=== PATIENT | female | born 1985 | race Caucasian/White ===

== ENCOUNTER 2019-11-12 12:47 | Emergency (ER) | payer SELFPAY | END 2019-11-12 13:10 | disposition home or self-care (01) | LOC: BURERS 12:47 | DX: H93.13 Tinnitus, bilateral (principal); R11.0 Nausea; F17.210 Nicotine dependence, cigarettes, uncomplicated; Z71.6 Tobacco abuse counseling | CPT/HCPCS: 99406 ==

== ENCOUNTER 2020-01-13 17:46 | Emergency (ER) | payer SELFPAY ==
[2020-01-13] MEDS ORDERED: Lidocaine 1% PF 5 ML VIAL ONE (18:10)
[2020-01-13] MEDS ORDERED: Amoxicillin/Potassium Clav 875 MG TAB ONE (19:35)
== END 2020-01-13 19:37 | disposition home or self-care (01) ==
LOC: BURERS 17:46
DX: S61.256A Open bite of right little finger without damage to nail, initial encounter (principal); F17.210 Nicotine dependence, cigarettes, uncomplicated; W54.0XXA Bitten by dog, initial encounter
CPT/HCPCS: 12001

== ENCOUNTER 2020-06-01 07:55 | Emergency (ER) | payer SELFPAY ==
[2020-06-01] MEDS ORDERED: Ondansetron PF 4 MG/2 ML Vial ONE (08:27)
[2020-06-01] MEDS ORDERED: Morphine 4 MG/ML VIAL ONE (08:27)
[2020-06-01 08:37] LABS: Hemoglobin 14.9 g/dL (12.0-16.0); Mean Corpuscular Hemoglobin 29.8 pg (27.0-31.0); Mean Corpuscular Volume 87.6 fL (78.0-98.0); Mean Platelet Volume 6.8 fL (7.4-10.4); Platelet Count 346 thou/uL (130-400); RBC Distribution Width 11.5 % (11.5-14.5); Red Blood Cell (RBC) Count 4.98 mill/uL (4.20-5.40); White Blood Cell (WBC) Count 5.8 thou/uL (4.8-10.8)
[2020-06-01 08:47] LABS: BHCG - Serum Negative (NEGATIVE); Pregs Control Background? CLEAR/WHITE (CLR/WHITE); Pregs Control Bar Appear? YES (CONTROL BAR)
[2020-06-01 08:48] LABS: Bilirubin Negative (Negative); Blood, Urine Moderate (Negative); Clarity Cloudy (Clear); Glucose, Urine (Dipstick) Negative (Negative); Ketone, Urine Negative (Negative); Leukocyte Negative (Negative); Nitrite Negative (Negative); Protein, Urine (Dipstick) Negative (Neg-Trace); Urobilinogen 0.2 mg/dL (Less than 2)
[2020-06-01 08:49] LABS: ALT (SGPT) 14 U/L (8-55); AST (SGOT) 22 U/L (5-34); Alkaline Phosphatase 67 U/L (40-110); Anion Gap 13 mmol/L (10-20); BUN (Urea Nitrogen) 14 mg/dL (7.0-18.7); Bilirubin, Total 0.4 mg/dL (0.2-1.2); Calc. Creatinine Clearance 0 mL/min (70-130); Calcium 9.6 mg/dL (7.8-10.44); Carbon Dioxide 26 mmol/L (22-29); Chloride 102 mmol/L (98-107); Globulin 3.4 g/dL (2.4-3.5); Glucose 125 mg/dL (70-105); Lipase 10 U/L (8-78); Protein, Total 8.4 g/dL (6.0-8.3); Sodium 137 mmol/L (136-145)
[2020-06-01 08:50] LABS: Bacteria/HPF 1+ HPF (None Seen); WBC/HPF 0-3 HPF (0-3)
[2020-06-01 09:01] LABS: Eosinophils 1 % (0-10); Lymphocytes 29 % (21-51); MDiff Complete? YES; Monocytes 2 % (0-10); Neutrophil 66 % (42-75); Platelet Morphology Comment Appears Adequate; Reactive Lymphocytes 2 % (0-10)
[2020-06-01] MEDS ORDERED: Ketorolac Tromethamine 30 MG/ML VIAL ONE (09:01)
--- NOTE | 2020-06-01 15:04 | CT ---
CT ABDOMEN AND PELVIS WITHOUT CONTRAST: 06/01/[address] of the abdomen and pelvis was done for evaluation of left flank pain. There is moderately severe left hydronephrosis that is secondary to a 6 mm calculus in the proximal l eft ureter near the UPJ. I do not see any other definite calculi in either kidney. The remainder of the examination was unremarkable. The lung bases are clear. The liver, spleen, pancr eas, gallbladder, right kidney, adrenal glands and abdominal aorta were unremarkable in appearance wi thin the limitations of a noncontrast study. There was no dilation or thickening of bowel. No inflamm atory changes were seen in the abdomen. No free air or free fluid was seen. CT of the pelvis shows no pelvic masses, free fluid or inflammatory changes. The adnexal regions were unremarkable. IMPRESSION: 6 mm proximal left ureteral calculus near the UPJ causing moderately severe left hydronephrosis. Preliminary report called at [id number] Manjarrez. POS: HOME
== END 2020-06-01 09:46 | disposition home or self-care (01) ==
LOC: BURERS 07:55
DX: N13.2 Hydronephrosis with renal and ureteral calculous obstruction (principal); J45.909 Unspecified asthma, uncomplicated; F17.210 Nicotine dependence, cigarettes, uncomplicated
CPT/HCPCS: 74176; 80053; 81003; 81015; 83690; 84703; 85025; 96374; 96375; J1885; J2270; J2405